=== PATIENT | female | born 1960 | race Two or more races ===

== ENCOUNTER 2017-11-21 19:19 | Inpatient (IN) | payer BC ==
[~2017-11-21] VITALS: Ht 154.9 cm; Wt 67.2 kg
[~2017-11-21 19:19] MED LIST: CARI-277; DIAZ10TA; GABA100C9; HYDR4TAB21; MORP30TA; NOR10T; SIMV-8; TRAZ50TA2
[2017-11-21] MEDS ORDERED: SODIUM CHLORIDE 0.9% 500 ML IVB ONE (19:41)
[2017-11-21] MEDS ORDERED: KETOROLAC TROMETH 30 MG/ML 1ML VIAL IV ONE (19:45)
[2017-11-21] MEDS ORDERED: ONDANSETRON HCL 4 MG/2 ML VIAL IV ONE (19:45)
[2017-11-21 20:12] LABS: Basophils # (auto) 0 uL; Basophils % (auto) 0.2 % (0.0-2.0); Eosinophils # (auto) 0.1 uL; Eosinophils % (auto) 0.9 % (0.0-7.0); Hematocrit 44.3 % (36.0-46.0); Hemoglobin 14.6 g/dL (12.2-16.2); Lymphocytes # (auto) 0.9 uL; Lymphocytes % (auto) 5.8 % (10.0-50.0); Mean Corpuscular Hemoglobin 31.4 pg (28.0-32.0); Mean Corpuscular Volume 95.2 fL (80.0-100.0); Monocytes # (auto) 1.1 uL; Monocytes % (auto) 7.2 % (0.0-12.0); Neutrophils # (auto) 13.4 uL; Neutrophils % (auto) 85.9 % (37.0-80.0); Nucleated Red Blood Cells % 0.1 %; Platelet Count (auto) 240 10^3/uL (140-450); Red Blood Cells 4.66 10^6/uL (4.0-5.20); Red Cell Distribution Width 12.8 % (11.8-14.3); White Blood Cell 15.6 10^3/uL (4.4-10.8)
[2017-11-21 20:35] LABS: Albumin 3.9 g/dL (3.4-5.0); BUN/Creatinine Ratio 21.3; Bilirubin, Total 0.7 mg/dL (0.2-1.0); Calcium 9.3 mg/dL (8.5-10.1); Magnesium 2.4 mg/dL (1.6-2.6); Potassium 3.8 mmol/L (3.5-5.1); Total Protein 7.7 g/dL (6.4-8.2)
[2017-11-21 21:08] LABS: Urine Bacteria NONE SEEN /hpf (None Seen); Urine Blood TRACE /uL (Negative); Urine Mucus FEW (None Seen); Urine Specific Gravity 1.036 (1.001-1.035); Urine WBC 1 /hpf (0 - 5)
[2017-11-21] MEDS: SODIUM CHLORIDE 0.9% 1,000 ML IV SCH (21:39)
[2017-11-21] MEDS ORDERED: ACETAMINOPHEN 325 MG TAB PO PRN (21:45)
[2017-11-21] MEDS ORDERED: PANTOPRAZOLE 40 MG/10 ML VIAL IV ONE (21:45)
[2017-11-21] MEDS ORDERED: cefTRIAXone 1GM/10ml IVPUSH 10 ML IV ONE (22:00)
[2017-11-21] MEDS: MORPHINE SULFATE 4 MG/ML SYR/VIAL IV PRN (22:19)
[2017-11-21] MEDS: ONDANSETRON HCL 4 MG/2 ML VIAL IV PRN (22:19)
[2017-11-21] MEDS ORDERED: diphenhdrAMINE HCL 50 MG/1 ML VL IV ONE (22:30)
[2017-11-21 22:36] VITALS: BP 100/69
[2017-11-21] MEDS: HYDROcodone-ACET 5/325MG TAB PO PRN (23:33)
[2017-11-21] MEDS: TEMAZEPAM 15 MG CAP PO PRN (23:37)
[2017-11-22] MEDS: ONDANSETRON HCL 4 MG/2 ML VIAL IV PRN ×5 (02:20→22:22)
[2017-11-22] MEDS: MORPHINE SULFATE 4 MG/ML SYR/VIAL IV PRN ×5 (02:20→22:23)
[2017-11-22 05:24] VITALS: BP 100/58
[2017-11-22 06:37] LABS: Basophils # (auto) 0 uL; Basophils % (auto) 0.1 % (0.0-2.0); Eosinophils # (auto) 0.2 uL; Eosinophils % (auto) 2.4 % (0.0-7.0); Hematocrit 28.6 % (36.0-46.0); Hemoglobin 9.5 g/dL (12.2-16.2); Lymphocytes # (auto) 1.4 uL; Mean Corpuscular Hgb Conc. 33.2 g/dL (32.0-36.0); Mean Corpuscular Volume 96.2 fL (80.0-100.0); Monocytes # (auto) 0.7 uL; Monocytes % (auto) 10.9 % (0.0-12.0); Neutrophils % (auto) 64.6 % (37.0-80.0); Platelet Count (auto) 156 10^3/uL (140-450); Red Blood Cells 2.97 10^6/uL (4.0-5.20); Red Cell Distribution Width 12.9 % (11.8-14.3); White Blood Cell 6.2 10^3/uL (4.4-10.8)
[2017-11-22 07:08] LABS: Albumin 1.9 g/dL (3.4-5.0); Bilirubin, Total 0.7 mg/dL (0.2-1.0); Total Protein 3.8 g/dL (6.4-8.2)
[2017-11-22 07:17] LABS: Calcium 5.9 mg/dL (8.5-10.1)
[2017-11-22] MEDS: SODIUM CHLORIDE 0.9% 1,000 ML IV SCH ×2 (08:52→21:52)
[2017-11-22] MEDS: PANTOPRAZOLE 40 MG/10 ML VIAL IV SCH (09:03)
[2017-11-22] MEDS: HYDROcodone-ACET 5/325MG TAB PO PRN (09:03)
[2017-11-22] MEDS: ENOXAPARIN SOD 40 MG/0.4 ML SYRINGE SC SCH (09:03)
[2017-11-22] MEDS: cefTRIAXone 1GM/10ml IVPUSH 10 ML IV SCH (09:04)
[2017-11-22 09:10] VITALS: BP 102/51
[2017-11-22 13:00] VITALS: BP 100/66
[2017-11-22] MEDS ORDERED: HYOSCYAMINE SULF 0.125 MG TAB PO PRN (15:30)
[2017-11-22] MEDS ORDERED: GASTROGRAFIN 120 ML SOL ONE (15:50)
[2017-11-22 17:00] VITALS: BP 132/75
[2017-11-22 20:00] VITALS: BP 105/48
[2017-11-22] MEDS: TEMAZEPAM 15 MG CAP PO PRN (21:58)
[2017-11-22] MEDS: PRO-STAT 64 30ML PO SCH (21:58)
[2017-11-22 22:00] VITALS: BP 105/48
[2017-11-23] MEDS: MORPHINE SULFATE 4 MG/ML SYR/VIAL IV PRN ×3 (02:39→13:09)
[2017-11-23 05:00] VITALS: BP 104/63
[2017-11-23] MEDS: ENOXAPARIN SOD 40 MG/0.4 ML SYRINGE SC SCH (08:43)
[2017-11-23] MEDS: SODIUM CHLORIDE 0.9% 1,000 ML IV SCH (08:44)
[2017-11-23] MEDS: PRO-STAT 64 30ML PO SCH (08:44)
[2017-11-23] MEDS: ONDANSETRON HCL 4 MG/2 ML VIAL IV PRN (08:44)
[2017-11-23] MEDS: PANTOPRAZOLE 40 MG/10 ML VIAL IV SCH (08:44)
[2017-11-23] MEDS: cefTRIAXone 1GM/10ml IVPUSH 10 ML IV SCH (08:45)
[2017-11-23] MEDS: HYDROcodone-ACET 5/325MG TAB PO PRN (12:28)
[2017-11-23 13:00] VITALS: BP 104/61
[2017-11-23 15:23] VITALS: BP 104/61
== END 2017-11-23 16:00 | disposition home or self-care (01) | DRG 389 ==
LOC: EDBD 19:19 → ER 19:23 → CENTRAL 19:24
PROVIDERS: ADMIT Nurse Practitioner; ATTEND Internal Medicine
DX: K56.7 Ileus, unspecified (principal); R65.10 Systemic inflammatory response syndrome (SIRS) of non-infectious origin without acute organ dysfunction; E78.5 Hyperlipidemia, unspecified; K59.00 Constipation, unspecified; G89.4 Chronic pain syndrome; Z79.899 Other long term (current) drug therapy; Z98.51 Tubal ligation status; Z87.891 Personal history of nicotine dependence
CPT/HCPCS: 36415; 74176; 74250; 80053; 81001; 82150; 82784; 83516; 83690; 83735; 85025; 86255; 94761; 96361; 96374; 96375; C9113; J1885; J2405

== ENCOUNTER 2024-04-29 10:20 | Emergency (ER) | payer BC, OTHER ==
[~2024-04-29] VITALS: Ht 152.4 cm; Wt 74.8 kg
[~2024-04-29 10:20] MED LIST changes: -DIAZ10TA; +DIAZ10TA66; +GABA-1308; -GABA100C9; -HYDR4TAB21; +HYDR4TAB90; -SIMV-8; +SIMV20TA20; +TRAZ-227; -TRAZ50TA2
[2024-04-29] MEDS: HYDROcodone-ACET 10/325MG TAB PO ONE (12:45)
[2024-04-29 15:27] VITALS: BP 126/59; TEMP 98.2
[2024-04-29 15:28] VITALS: PULSE 71; RESP 16; O2SAT 96
== END 2024-04-29 15:31 | disposition home or self-care (01) ==
LOC: ER 10:20
DX: S83.91XA Sprain of unspecified site of right knee, initial encounter (principal); G89.29 Other chronic pain; M25.561 Pain in right knee; E78.5 Hyperlipidemia, unspecified; Z98.51 Tubal ligation status; Z87.891 Personal history of nicotine dependence; X58.XXXA Exposure to other specified factors, initial encounter; Y93.89 Activity, other specified; Y92.89 Other specified places as the place of occurrence of the external cause; Y99.8 Other external cause status
CPT/HCPCS: 73562

== ENCOUNTER → 2025-05-04 | Day surgery (SDC) | payer OTHER, MEDICAID ==
[~2025-05-04] VITALS: Ht 152.4 cm; Wt 73.9 kg
[~2025-05-04] MED LIST changes: -DIAZ10TA66; -GABA-1308; +GLYCOPYRROLATE 0.2 MG/ML 1ML VIAL ONE; -HYDR4TAB90; +HYDROCORTISONE SOD SUCC 100 MG/2ML INJ VIAL ONE; +HYDROmorphone HCL 2 MG/ML VL/or syr IV PRN; +HYDROmorphone HCL 2 MG/ML VL/or syr ONE; +KETAMINE 50mg/ML 1ml syringe ONE; +KETOROLAC TROMETH 30 MG/ML 1ML VIAL ONE; +LIDOCAINE 2% (LOCAL ANESTH.) PF 5ml SDV ONE; +MIDAZOLAM HCL 2MG/2ML 2ml VIAL (1mg/ml) ONE; -MORP30TA; +ONDANSETRON HCL 4 MG/2 ML VIAL IV ONE; +PROPOFOL 10 MG/ML 20 ML IV ONE; -TRAZ-227; +TRAZ1TAB12 PO; +fentaNYL CITRATE 100 MCG/2 ML VL ONE
[2025-05-04] MEDS: ceFAZolin 2 GM/D5W50ml 50 ML IV ONE (07:30)
[2025-05-04] MEDS: ROPIVACAINE 0.5% (5MG/ML) 20ML AMPULE IJ ONE (08:00)
[2025-05-04 08:13] VITALS: PULSE 121; RESP 20; O2SAT 96
--- NOTE | 2025-05-04 08:14 | DVHOP2 ---
Operative Report - 2 Report Details Date: 05/04/25 Preop Diagnosis: Right knee lateral meniscus tear Postop Diagnosis: Right knee lateral meniscus tear and pathologic plica Surgeon: Vahid De Leon [employer] Vice Principal: Irvin LYN Anesthesiologist: Nik Anesthesia: General, Local Consent: The patient was informed of the risks and benefits of the procedure. These include but are not limited to complications of anesthesia, postoperative infection, incomplete relief of symptoms, recurrence of symptoms, damage to blood vessels, nerves and tendons, deep venous thrombosis, pulmonary embolism and possible need for repeat surgery in the future. Complications: None Estimated Blood Loss: Less than 5 cc Fluids: See anesthesia record Findings: Normal range of motion no instability. 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, mild chondromalacia medial compartment was some grade 2 change of the lateral aspect of the medial femoral condyle, ACL PCL intact, complex degenerative tear lateral meniscus with mild chondromalacia changes of the cartilage, no loose bodies Indications for Surgery: Right knee pain with mechanical symptoms and failed nonoperative management an MRI confirmed lateral meniscus tear Name of Procedure Performed Right knee partial lateral meniscectomy, limited synovectomy (plica resection) Procedure Details Procedure Details: Patient was brought to the operating room placed on table supine position. General anesthetic was given. 2 g IV Ancef were given. Examination anesthesia performed. Operative lower extremity was prepped and draped in sterile fashion. Surgical timeout was performed verifying patient, laterality, and procedure. I injected 10 cc of 0.5% ropivacaine in the portal sites and intra-articularly. Extremity was elevated, exsanguinated with Esmarch, and tourniquet inflated to 250 mm Hg. I then made inferior lateral portal in usual fashion and entered the joint with blunt cannula and trocar. I began my inspection of the supra suprapatellar recess patellofemoral compartment medial gutter and the medial compartment. I placed inferior medial portal utilizing a spinal needle for guidance. I inspected and probed the structures with findings noted above. The notch was then inspected and probed ligaments which were intact. I checked the lateral compartment in the [id number] position and again probed the structures which identifying a complex degenerative tear of both the anterior and posterior lateral meniscus. It was debrided to a stable margin with biters Dorinda and radiofrequency device. I switched instrumentation portal visualization portals during the process to facilitate the procedure. I then returned to the lateral portal for visualization.. I inspected the lateral gutter and brought my attention back to the patellofemoral compartment. I debrided the plica with shaver as well as the prolific synovium. I irrigated and suctioned several times to remove particulate debris. I then suctioned the joint as dry as possible. Portal sites were closed with Steri-Strips. [ I injected the remaining half percent ropivacaine intra-articularly for postop analgesia. ] The wounds were dressed sterilely. Patient tolerated the procedure well and was brought to the recovery room in stable condition. Condition Stable Disposition Still a Patient VAHID DE LEON MD May 04, 2025 08:14
[2025-05-04 09:00] VITALS: BP 145/55; PULSE 91; RESP 18; O2SAT 97
== END | disposition home or self-care (01) ==
LOC: SUR 06:11
PROVIDERS: ATTEND Orthopaedic Surgery
DX: S83.271A Complex tear of lateral meniscus, current injury, right knee, initial encounter (principal); M67.51 Plica syndrome, right knee; M22.41 Chondromalacia patellae, right knee; F32.A Depression, unspecified; E78.5 Hyperlipidemia, unspecified; K21.9 Gastro-esophageal reflux disease without esophagitis; X58.XXXA Exposure to other specified factors, initial encounter; Y93.89 Activity, other specified; Y92.89 Other specified places as the place of occurrence of the external cause; Y99.8 Other external cause status
CPT/HCPCS: 29881; J0169; J0690; J1171; J1720; J1885; J2003; J2250; J2704; J2795; J3010